=== PATIENT | male | born 1970 | race Caucasian/White ===

== ENCOUNTER → 2023-12-06 11:19 | Outpatient (REF) | payer OTHER, SELFPAY | LOC: HWRAD 11:19 | PROVIDERS: ATTENDING PHYSICIAN Physician Assistant Medical | DX: R19.4 Change in bowel habit (principal) | CPT/HCPCS: 74177; Q9967 ==

== ENCOUNTER 2024-06-18 17:18 | Emergency (ER) | payer OTHER, SELFPAY ==
[2024-06-18] VITALS (20 sets, daily range): BP systolic 91–177; BP diastolic 46–107; BMI 21.8
--- NOTE | 2024-06-18 18:08 | ED.GENMED ---
History of Present Illness
General
Chief Complaint: Chest Pain
Source: patient
Exam Limitations: none
Time Seen by Provider: 06/18/24 17:56
History of Present Illness
History of Present Illness:
This is a 53 year old male that comes in with c/o chest discomfort. States that yesterday he was on his mountain bike and he was unable to finish his ride. States that he went about 4 miles and stopped for water and he felt tired and weak. States
that his HR was 140. States that he normally does 10-15 miles and he had rested for a week in preparation for this. Today he went to the store and was pushing the cart and he felt strained. States that he has this dull soreness in his chest. States
that later he went for a walk and he also felt his heart rate elevated and chest discomfort. States that right now his pain is a 2/10. Denies any fever, chills, SOB, abd pain, nausea, vomiting, diarrhea, headache, dizziness, urinary burning.
Past History
Past History
ED Past Medical History: HTN, Psychiatric (Anxiety, Panic disorder) and Other (Polyps)
ED Past Surgical History: None and Other (Dental surgery)
Social History
Tobacco: Non-smoker
Alcohol: None
Drug: None
Personal: Single
Living: alone
Employment: Employed
Review of Systems
Review of Systems
All Other Systems: ROS reviewed and negative except as documented in HPI and ROS
Constitutional: Reports no symptoms; Denies fever or chills
EENT: Reports no symptoms
Respiratory: Denies cough or trouble breathing
Cardiac: Reports chest pain
ABD/GI: Reports no symptoms; Denies abdominal pain, nausea, vomiting or diarrhea
: Reports no symptoms; Denies dysuria, frequency or urgency
Musculoskeletal: Reports no symptoms
Skin: Reports no symptoms
Neurological: Reports no symptoms; Denies dizzy or headache
Psychiatric: Reports no symptoms
Phy Exam
General Physical Exam
General Presentation: well appearing and no apparent distress
General age: appears stated age
General Skin: warm and dry
General Habitus: normal
General Mental: alert
General Hydration: appears well hydrated
ENT Exam
ENT Exam: TM's normal, pharynx normal and neck supple
Eye Exam
Eye Exam: EOMI
Cardiovascular Exam
Cardiovascular Exam: regular rate/rhythm, no edema, no murmur and normal peripheral pulses
Pulmonary Exam
Pulmonary Exam: lungs clear, no respiratory distress, no rales, chest non tender, no crackles, no rhonchi, no wheezing and no cough
Gastrointestinal Exam
Gastrointestinal Exam: normal bowel sounds, non tender, soft, no organomegaly, no pulsatile mass and non distended
Musculoskeletal Exam
Musculoskeletal Exam: full ROM and no edema
Skin Exam
Skin Exam: normal color, warm/dry, no rash and no petechia
Scores
Heart Score for Chest Pain Patients
STEMI patient?: No
History: Moderately Suspicious
ECG: Normal
Age: >45 - <65 years
Risk Factors: 1 or 2 Risk Factors
Troponin: </= Normal Limit
Heart Score for Chest Pain Patients: 3
Heart Score Risk: 2.5% MACE over next 6 weeks
Course
Orders/Labs/Results
Orders:
Orders
06/18/24 17:19
Electrocardiogram (*1) Urgent
Reason for Study: Chest Pain
EKG- Treatment ONCE
06/18/24 18:07
EKG- Treatment ONCE
IV Insert/Care/Rem.- Treatment PRN
06/18/24 18:08
CR Chest - 2 Views Urgent
Comment:
Reason For Exam: Chest pain
06/18/24 18:12
Aspirin 325 mg PO NOW STA
Nitroglycerin Sublingual [Nitrostat (Sublingual)] 0.4 mg SL NOW STA
06/18/24 18:15
Electrocardiogram (*1) Q3H
Reason for Study: Chest Pain
06/18/24 18:21
COVID-19 Antigen Urgent
Source: Nasal Swab
Complete Blood Count/With Diff Urgent
Comprehensive Metabolic Panel Urgent
TSH Reflex To Free T4 Urgent
Troponin I Q3H
06/18/24 18:35
EKG [Electrocardiogram (*1)] Urgent
Reason for Study: Chest Pain
EKG- Treatment ONCE
06/18/24 18:36
Nitroglycerin Sublingual [Nitrostat (Sublingual)] 0.4 mg SL NOW STA
06/18/24 18:57
0.9% Sodium Chloride 1000 ml [Nss] 1,000 ml IV BOLUS
06/18/24 21:15
Electrocardiogram (*1) Q3H
Reason for Study: Chest Pain
06/18/24 21:30
Troponin I Q3H
Abnormal Lab Results
06/18/24
18:21
Absolute Monos (auto) 0.8 H 10^3/uL
(0.1-0.6)
Monocytes % 10.5 H %
(1.7-9.3)
Glucose 101 H mg/dl
(70-99)
06/18/24 18:21
06/18/24 18:21
Glucose slightly elevated. Otherwise labs normal. COVID negative. Troponin <0.012, TSH 0.76
Second Troponin <0.012
Vital Signs
Initial and Last Documented VS:
Initial Vital Signs
Temp Pulse Resp BP Pulse Ox
98.0 F 81 16 177/107 98
06/18/24 17:20 06/18/24 17:20 06/18/24 17:20 06/18/24 17:20 06/18/24 17:20
Last Documented Vital Signs
Temp Pulse Resp BP Pulse Ox
98.5 F 97 16 146/83 97
06/18/24 18:08 06/18/24 18:30 06/18/24 18:30 06/18/24 18:46 06/18/24 19:30
MDM/Problems Addressed
Differential Diagnosis Includes:
coronary syndrome. Anxiety
MDM/Problems Addressed:
This is a 53 year old male that comes in with c/o chest pain. States that he had to stop his bike ride yesterday as his heart rate was elevated and he felt tired and weak. Today just pushing a cart he in the store he felt strained and had this dull
soreness in his chest. States that at this time his pain is a 2/10.
Will get labs, chest x-ray. Explained to patient that his story is concerned as he normally would be able to ride 10-15 miles. If both troponin negative will place patient on the Cardiology hot line for further evaluation.
Back into see patient. Explained that both Troponin are normal along with his chest x-ray and he is negative for COVID. Will place patient on the cardiology hot line. Patient to return with increased or changing pain. Will also place patient on
Protonix and suggested that he decrease his caffeine intake.
Repeat ECG: rate 67, Sinus arrhythmia, Normal axis, Normal QRS, Negative for ischemia.
Chronic conditions affecting care:
NA
Acute Exacerbation and/or Progression of Chronic Illness:
NA
*Radiology
Radiology exam reviewed: radiology read reviewed (Chest-No acute cardiopulmonary process. )
*Pulse Oximetry
Patient hypoxic: no
*EKG
Interpreted by ED Provider?: Yes
Heart Rate: 61
Rate: normal
Rhythm: sinus
[place]: normal axis
Interval: normal interval
QRS Pattern: normal QRS
Ischemia: non-specific ST changes (V2)
*Stunt Man Interpretation
Rate: normal
Heart Rate: 77
Rhythm: sinus
*Critical Care Note
Total Time (30-74mins, 75-104mins- exclusive of procedures): Not Applicable
ED Attending Note
-
Portions of this chart may have been created with voice recognition software.� Occasional wrong word or��sound alike� substitutions may have occurred due to the inherent limitations of voice recognition software.
Discharge Plan
Departure
Patient Disposition: Home (Routine Discharge)
Date of Disposition: 06/18/24
Time of Disposition: 22:14
Patient with high blood pressure during this ER visit?: Yes
Condition: Good
Covid-19: Not Applicable
Discharge Problem:
Chest pain
Instructions: Chest Pain CBC Follow Up, BLOOD PRESSURE
Prescriptions:
New
pantoprazole [Protonix] 40 mg tablet,delayed release (DR/EC)
40 mg PO DAILY Qty: 10 0RF
No Action
acetaminophen 500 MG tablet
1 tab PO PRN PRN (Reason: pain)
alprazolam 0.25 MG tablet
0.25 mg PO PRN PRN (Reason: anxiety)
ibuprofen 200 MG tablet
200 mg PO PRN PRN (Reason: pain)
Referrals:
Radhames Al PA-C [Family Provider] -
Activity Restrictions/Additional Instructions:
As discussed, your blood work is normal. You are negative for COVID and your chest x-ray is normal. You have been place on the Cardiology hot line. This means that you will be called the next business day and set up for a [facility] appointment.
Please no Exercising until you are cleared by the papier mache' molder. You have also had a prescription sent to your Pharmacy for Protonix for reflux for the next 10 days. Please try and stay away from caffeine as this will elevated your heart rate and
blood pressure. IF YOU HAVE INCREASED OR CHANGING PAIN, OR YOU HAVE ANY OTHER CONCERNS PLEASE RETURN TO THE EMERGENCY ROOM.
Interventions
Interventions:
*Risk Screen - Suicide Last Done: 06/18/24 18:08
*General Assessment Last Done: 06/18/24 18:08
*Neglect/Abuse Screening Last Done: 06/18/24 18:08
ED- Fall Risk Assessment Last Done: 06/18/24 18:08
*ED COVID-19 Vaccine History Last Done: 06/18/24 18:08
ED- Cardiac Assessment Last Done: 06/18/24 19:30
Discharge Date and Time
Print Language: GREEK
[2024-06-18] MEDS: ASPIRIN 325 MG PO (18:15)
[2024-06-18] MEDS: NITROSTAT (SUBLINGUAL) 0.4 MG SL ×2 (18:15→18:41)
[2024-06-18 18:43] LABS: % Basophils 0.3 % (0-2); % Eosinophils 0.7 % (0-6); % Immature Granulocytes 0.1 % (0-0.5); % Lymphocytes 24.9 % (20.5-51.1); % Monocytes 10.5 % (1.7-9.3); % Neutrophils 63.5 % (42.2-75.2); Absolute Eosinophils 0.1 10^3/uL (0-0.7); Absolute Lymphocytes 1.8 10^3/uL (1.2-3.4); Absolute Monocytes 0.8 10^3/uL (0.1-0.6); Absolute Neutrophils 4.6 10^3/uL (1.4-6.5); Hematocrit 42.1 % (39.0-52.0); Hemoglobin 14.6 g/dL (13.0-18.0); Mean Corp Hgb Conc. 34.7 g/dL (33.0-37.0); Mean Corpuscular Hgb 30.9 pg (27.0-31.0); Mean Corpuscular Volume 89.2 fL (80.0-94.0); Mean Platelet Volume 10.1 fL (7.4-10.4); Nucleated Red Blood Cells % 0 % (-); Platelet Count 194 10^3/uL (130-400); Red Blood Cell Count 4.72 10^6/uL (4.70-6.10); Red Cell Dist. Width 12.5 % (11.5-14.5); White Blood Cell Count 7.2 10^3/uL (4.8-10.8)
[2024-06-18 18:56] LABS: ALT (SGPT) 27 U/L (0-50); AST (SGOT) 28 U/L (17-59); Albumin 4.4 g/dl (3.5-5.0); Alkaline Phosphatase 51 U/L (38-126); Blood Urea Nitrogen 20 mg/dl (9-20); Calcium 9.1 mg/dl (8.4-10.2); Carbon Dioxide 27 mmol/L (22-30); Chloride 102 mmol/L (98-107); Estimated Creatinine Clearance 100 ml/min; Glucose 101 mg/dl (70-99); Potassium 3.8 mmol/L (3.5-5.1); Sodium 140 mmol/L (135-145); Total Bilirubin 0.3 mg/dl (0.2-1.3); Total Protein 6.9 g/dl (6.3-8.2); eGFR > 60.00
--- NOTE | 2024-06-18 18:56 | EDRN ---
this RN heard the pt yelling, 'Hello, help help', this RN entered the pts room and the pt stated to this RN, 'I need help i feel faint and i feel like the room is spinning and i just don't feel good', the pt appeared to be pale, this RN notified
Griselda Quinones NP and per the provider this RN placed the pt into reverse Trendelenberg and hung 1000cc IVF Bolus that is hung and running, the pt stated shortly after, 'I feel much better', Griselda Quinones NP came to the pts bedside, VS WNL, no c/o
chest pain, no c/o SOB, will continue to monitor the pt closely
[2024-06-18] MEDS: NSS 1000 IV (18:58)
[2024-06-18 19:08] LABS: Troponin I < 0.012 ng/ml
[2024-06-18 19:12] LABS: COVID-19 Antigen Negative (Negative)
[2024-06-18 19:26] LABS: TSH Reflex To Free T4 0.76 uIU/ml (0.47-4.68)
[2024-06-18 22:02] LABS: Troponin I < 0.012 ng/ml
== END 2024-06-18 22:35 | disposition home or self-care (01) ==
LOC: EMR 17:18
PROVIDERS: Clinical Nurse Specialist Family Health; EMERGENCY PHYSICIAN Emergency Medicine; FAMILY PHYSICIAN Physician Assistant Medical
DX: R07.89 Other chest pain (principal); I10 Essential (primary) hypertension
CPT/HCPCS: 96360; 99285; 71046; 80053; 84443; 84484; 85025; 87811; 93005

== ENCOUNTER → 2024-07-10 07:30 | Outpatient (REF) | payer OTHER, SELFPAY | LOC: RCS 07:30 | PROVIDERS: ATTENDING PHYSICIAN Internal Medicine Cardiovascular Disease; FAMILY PHYSICIAN Physician Assistant Medical | DX: R07.2 Precordial pain (principal) | CPT/HCPCS: 93017 ==

== ENCOUNTER 2025-07-13 06:28 | Day surgery (SDC) | payer OTHER, SELFPAY | END 2025-07-13 10:22 | disposition home or self-care (01) | LOC: GI 06:28 | PROVIDERS: ATTENDING PHYSICIAN Internal Medicine; FAMILY PHYSICIAN Physician Assistant Medical | DX: Z12.11 Encounter for screening for malignant neoplasm of colon (principal); D12.5 Benign neoplasm of sigmoid colon; K63.5 Polyp of colon; Z86.0101 Personal history of adenomatous and serrated colon polyps; Z80.0 Family history of malignant neoplasm of digestive organs; K57.30 Diverticulosis of large intestine without perforation or abscess without bleeding; K64.8 Other hemorrhoids; K44.9 Diaphragmatic hernia without obstruction or gangrene; K31.89 Other diseases of stomach and duodenum; K31.7 Polyp of stomach and duodenum; R12 Heartburn; Z13.810 Encounter for screening for upper gastrointestinal disorder | CPT/HCPCS: 45385; 45380; 43239; 88305; 88342 ==